=== PATIENT | male | born 1975 | race Caucasian/White ===

== ENCOUNTER 2022-10-15 14:19 | Inpatient (IN) | payer SELFPAY ==
--- OUTSIDE RECORDS SUMMARY | 2022-10-15 14:35 | XMS REPORT | Continuity of Care Document ---
:1975 Author Organization [facility] t Address [address] [place] [address] Care Team Providers Name Role Phone Pcp, Patient Does Not Have A Primary Care Physician [id number] Susan Osborne Attending Clinician SUSAN OAKLEY Attending Clinician Unavailable Doctor Unassigned, [place] Attending Clinician Unavailable Problems This patient has no known problems. Allergies, Adverse Reactions, Alerts Allergy Allergy Status Severity Reaction(s) Onset Inactive Treating Comm ents Source Name Type Date Date Clinician NO KNOWN Drug Active Univers ALLERGIE Class ity of S [facility] Social History Social Habit Start Date Stop Date Quantity Comments Source History of Passive smoker University of tobacco use [facility] Exposure to 2022-08-03 2022-08-13 Not sure [facility] SARS-CoV-2 00:00:00 08:43:00 [facility] (event) Branch Tobacco use and 2022-08-13 2022-08-13 Smokeless tobacco Un iversity of exposure 00:00:00 00:00:00 non-user [facility] Sex Assigned At [birth year] Universit y of 00:00:00 00:00:00 [facility] Smoking Status Start Date Stop Date Source Tobacco smoking consumption [facility] [place] Smokes tobacco daily 2022-08-13 00:00:00 [facility] Medications Ordered Filled Start Stop Current Ordering Indication Dosage Frequency Signature Comments Components Source Medication Medication Date Date Medication? Clinician (SIG) Name Name gabapentin Yes [id number] 100mg Take 1 Univers 100 mg 5-31 capsule by ity of capsule 00:00: mouth 3 [place] 00 (three) Medical times [place] daily as needed for Pain (scale 4-6). gabapentin Yes [id number] 100mg Take 1 Univers 100 mg 5-31 capsule by ity of capsule 00:00: mouth 3 [place] [address] (three) Medical times Branch daily as needed for Pain (scale 4-6). gabapentin 0 Yes [id number] 100mg Take 1 Univers 100 mg 5-31 capsule by ity of capsule 00:00: mouth 3 [place] 00 (three) Medical times Branch daily as needed for Pain (scale 4-6). Vital Signs Vital Name Observation Time Observation Value Comments Source Systolic blood 2022-08-13 14:00:00 137 mm[Hg] Univer sity [facility] Diastolic blood 2022-08-13 14:00:00 89 mm[facility]Hg[facility] 2022-08-13 14:00:00 100 /min [facility] Body temperature 2022-08-13 13:59:00 36.94 D[place] [facility] Respiratory rate 2022-08-13 13:59:00 16 /min [facility] Body height 2022-08-13 13:59:00 193 cm [facility] Body weight 2022-08-13 13:59:00 83.915 kg [facility] BMI 2022-08-13 13:59:00 22.52 kg/m2 [facility] Oxygen saturation in 2022-08-13 13:59:00 100 /min [facility] blood by [facility] Pulse oximetry Branch Procedures Procedure Date / Time Performed Performing Clinician [facility] e ASSIGNMENT OF BENEFITS 2022-08-13 13:45:13 Doctor Unassigned, No [facility] Branch Encounters Start End Encounter Admission Attending Care Care Encounter Source Date/Time Date/Time Type Type Clinicians Facility Department ID 2022-08-15 2022-08-15 Telephone Susan Oakley [facility] [id number] Univers 00:00:00 00:00:00 SPECIALTY [id number] ity [facility] [id number] Philippe ROWELL [id number] [facility] 387 Branch 2022-08-13 2022-08-13 Office Susan Oakley [facility] [id number] Univers 09:00:00 09:30:00 Visit SPECIALTY [id number] ity of [place] [id number] [facility] [id number] [facility] 314 Branch 2022-08-13 2022-08-13 Outpatient R SUSAN OAKLEY [facility] [id number] [facility] 09:00:00 09:00:00 ity of [facility] 2022-08-13 2022-08-13 Orders Doctor KATHY [id number] [facility] 00:00:00 00:00:00 Only Unassigned, JOO [id number] ity of [place] [facility] [id number] [facility] [id number] [facility] 009 Branch Results This patient has no known results.
[2022-10-15 15:19] LABS: Absolute Lymphocytes (CBC) 2.3 K/uL (0.7-4.9); Hematocrit 44.8 % (39.6-49.0); Lymphocytes % 42.2 % (15.3-44.8); MCV 103.1 fL (80-100); MPV 7.1 fL (7.6-11.3); RBC Red Blood Cell Count 4.34 M/uL (4.33-5.43)
--- NOTE | 2022-10-15 15:23 | RAD REPORT ---
EXAM DESCRIPTION: RAD - Tib Fib Right - 10/15/2022 3:17 pm CLINICAL HISTORY: laceration, swelling Pain and swelling. COMPARISON: No comparisons FINDINGS: Soft tissue laceration anterior to the patella. No radiopaque foreign body. No fracture or dislocation. No aggressive marrow pattern.
[2022-10-15 15:25] LABS: Protime INR 0.92
[2022-10-15 15:39] LABS: Albumin 3.9 g/dL (3.4-5.0); Bilirubin Total 0.4 mg/dL (0.2-1.0); Potassium 4.1 mEq/L (3.5-5.1); Protein, Total 7.3 g/dL (6.4-8.2)
--- NOTE | 2022-10-15 15:52 | RAD REPORT ---
EXAM DESCRIPTION: US - Extremity Venous Uni Ltd - 10/15/2022 3:32 pm CLINICAL HISTORY: SWELLING Leg swelling and edema. COMPARISON: No comparisons FINDINGS: Right lower extremity venous system was interrogated with Doppler technique. Normal flow, compressibility and augmentation was noted. There is no DVT present. IMPRESSION: No evidence of right lower extremity deep venous thrombosis.
[2022-10-15] MEDS ORDERED: NA CHLORIDE 0.9% 1,000 ML ONE ×2 (16:14→18:58)
[2022-10-15] MEDS ORDERED: CLINDAMYCIN 900MG/D5W 900 MG/50 ML IVPB IV ONE (16:14)
--- NOTE | 2022-10-15 17:39 | ER ---
Nurse's Notes [facility] Name: Scottie Tyler Age: 46 yrs Sex: Male : 1975 Arrival Date: 10/15/2022 Time: 14:19 Bed 2 Private MD: Diagnosis: Cellulitis of right lower limb Presentation: 10/15 14:46 Chief complaint: Patient states: fell about 10 days ago, has lacerations to right knee me1 and gustafson that are red and warm. Edema noted to right leg. Denies fever. Coronavirus screen: Vaccine status: Patient reports receiving the 2nd dose of the covid vaccine. At this time, the client does not indicate any symptoms associated with coronavirus-19. Ebola Screen: No symptoms or risks identified at this time. Initial Sepsis Screen: Does the patient meet any 2 criteria? No. Patient's initial sepsis screen is negative. Does the patient have a suspected source of infection? Yes: Other: lacerations to right knee and gustafson. Risk Assessment: Do you want to hurt yourself or someone else? Patient reports no desire to harm self or others. Onset of symptoms is unknown. 14:46 Method Of Arrival: Ambulatory [facility] 14:46 Acuity: LAVON 3 ok1 Triage Assessment: 14:50 General: Appears uncomfortable, slender, Behavior is calm, cooperative, appropriate for ok1 age. Pain: Denies pain. Neuro: Level of Consciousness is awake, alert, obeys commands, Oriented to person, place, time, situation. Cardiovascular: Capillary refill < 3 seconds Patient's skin is warm and dry. Respiratory: Respiratory effort is even, unlabored, Respiratory pattern is regular, symmetrical. Injury Description: Laceration sustained to right knee and right gustafson. is full thickness, red, warm and surrounding tissue is swollen. Historical: - Allergies: 14:49 No Known Allergies; me1 - Home Meds: 14:49 None [Active]; me1 - PMHx: 14:49 scoliosis; me1 - PSHx: 14:50 None; me1 - Immunization history:: Adult Immunizations up to date. - Social history:: Smoking status: Patient reports the use of cigarette tobacco products, smokes one pack cigarettes per day. Screenin:02 [facility] ED Fall Risk Assessment (Adult) History of falling in the last 3 months, bp including since admission No falls in past 3 months (0 pts). Abuse screen: Denies threats or abuse. Denies injuries from another. Nutritional screening: No deficits noted. Tuberculosis screening: No symptoms or risk factors identified. Assessment: 15:06 Reassessment: Patient appears in no apparent distress at this time. Patient and/or db family updated on plan of care and expected duration. Pain level reassessed. Patient is alert, oriented x 3, equal unlabored respirations, skin warm/dry/pink. General: Appears in no apparent distress. comfortable, Behavior is calm, cooperative. Pain: Complains of pain in right leg. 16:16 Reassessment: No changes from previously documented assessment. Patient is alert, bp oriented x 3, equal unlabored respirations, skin warm/dry/pink. 17:01 Reassessment: Patient appears in no apparent distress at this time. Patient is alert, bp oriented x 3, equal unlabored respirations, skin warm/dry/pink. 17:33 Reassessment: Patient appears in no apparent distress at this time. Patient and/or db family updated on plan of care and expected duration. Pain level reassessed. Patient is alert, oriented x 3, equal unlabored respirations, skin warm/dry/pink. 18:40 Reassessment: Patient appears in no apparent distress at this time. Patient and/or db family updated on plan of care and expected duration. Pain level reassessed. Patient is alert, oriented x 3, equal unlabored respirations, skin warm/dry/pink. Vital Signs: 14:46 BP 141 / 100; Pulse 103; Resp 17; Temp 98.3(O); Pulse Ox 96% on R/A; Weight 90.72 kg; me1 Height 6 ft. 6 in. ; 14:53 BP 141 / 100; Pulse 103; Resp 17; Temp 98.3; Pulse Ox 96% ; Weight 90.72 kg; Height 6 me1 ft. 6 in. ; 16:16 BP 129 / 93; Pulse 79; Resp 16; Pulse Ox 98% ; bp 17:01 BP 123 / 93; Pulse 88; Resp 16; Pulse Ox 99% ; bp 20:27 BP 137 / 98; Pulse 91; Resp 15; Pulse Ox 98% on R/A; kd3 14:53 Body Mass Index 23.11 (90.72 kg, 198.12 cm) ok1 ED Course: 14:20 Patient arrived in ED. rg4 14:24 Nadia Gillespie PA-C is PHCP. sb4 14:24 Manjit Norton MD is Attending Physician. sb4 14:36 Wilfred Crowder, RN is Primary Nurse. bp 14:49 Triage completed. me1 14:50 Arm band placed on. me1 15:07 Inserted saline lock: 20 gauge in right antecubital area, using aseptic technique. db Blood collected. 15:07 Initial lab(s) drawn, by me, sent to lab. db 15:07 First set of blood cultures drawn by me. db 15:18 Tib Fib Right XRAY In Process Unspecified. EDMS 15:33 Extremity Venous Uni Ltd US In Process Unspecified. EDMS 15:59 Second set of blood cultures drawn by me. db 17:02 Patient has correct armband on for positive identification. Bed in low position. Call bp light in reach. Side rails up X2. 17:35 Attending Physician role handed off by Manjit Norton MD rn 17:35 Farzad Sanchez MD is Attending Physician. rn 17:38 Mac Sanchez MD is Hospitalizing Provider. sb4 17:53 Repeat lab(s) drawn. by me, sent to lab. db 20:27 Provided Education on: . kd3 20:27 No provider procedures requiring assistance completed. Patient admitted, IV remains in kd3 place. 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 Exp: bp 04/02/2023. Lot #: [id number]. } Route: IM; Site: right deltoid; 18:45 Drug: NS 0.9% IV 1000 ml Route: IV; Rate: 1 bolus; Site: right forearm; bp Medication: 20:27 VIS not applicable for this client. kd3 Intake: 17:30 IV: 1000ml; Total: 1000ml. db 17:30 IV: 1000ml; Total: 2000ml. db Outcome: 17:39 Decision to Hospitalize by Provider. sb4 20:27 Admitted to Med/surg kd3 20:27 Condition: stable 20:27 Discharge instructions given to patient, Instructed on the need for admit. 20:42 Patient left the ED. kd3 Signatures: Dispatcher [employer] EDMS Farzad Sanchez MD MD rn Garcia, Rubi rg4 Wilfred Crowder RN RN Nury Huggins RN RN kd3 Gema Arevalo, RN RN db Nadia Gillespie, PA-C PA-C sb4 Zuleima Cotto RN RN me1 Corrections: (The following items were deleted from the chart) 14:53 14:50 Injury Description: Laceration sustained to right knee and right gustafson. me1 me1 14:56 14:42 Chief complaint: me1 me1
--- NOTE | 2022-10-15 17:39 | EDPHYS ---
Physician Documentation [facility] Name: Scottie Tyler Age: 46 yrs Sex: Male : 1975 Arrival Date: 10/15/2022 Time: 14:19 Bed 2 Private MD: ED Physician Farzad Sanchez HPI: 10/15 15:37 This 46 yrs old Male presents to ER via Ambulatory with complaints of Laceration to sb4 Knee/Leg. 15:37 Onset: The symptoms/episode began/occurred 10 day(s) ago. sb4 16:50 states he fell and scraped his right knee and gustafson on the concrete 10 days ago. he has sb4 been attempting to clean it at home and wrap it. he states his right leg has slowly become more swollen and now his wounds are draining. he denies any fevers, shortness of breath, n/v. Historical: - Allergies: 14:49 No Known Allergies; me1 - Home Meds: 14:49 None [Active]; me1 - PMHx: 14:49 scoliosis; me1 - PSHx: 14:50 None; me1 - Immunization history:: Adult Immunizations up to date. - Social history:: Smoking status: Patient reports the use of cigarette tobacco products, smokes one pack cigarettes per day. ROS: 16:50 Constitutional: Negative for fever, chills, and weight loss, Eyes: Negative for injury, sb4 pain, redness, and discharge, ENT: Negative for injury, pain, and discharge, Cardiovascular: Negative for chest pain, palpitations, and edema, Respiratory: Negative for shortness of breath, cough, wheezing, and pleuritic chest pain, Abdomen/GI: Negative for abdominal pain, nausea, vomiting, diarrhea, and constipation, Back: Negative for injury and pain, Neuro: Negative for headache, weakness, numbness, tingling, and seizure. 16:50 MS/extremity: Positive for laceration, swelling. 16:50 Skin: Positive for laceration(s), swelling, of the right knee and right gustafson. 16:50 All other systems are negative. Exam: 16:50 Constitutional: This is a well developed, well nourished patient who is awake, alert, sb4 and in no acute distress. Head/Face: Normocephalic, atraumatic. Eyes: Extra-ocular motions intact. Periorbital areas with no swelling, redness, or edema. ENT: Mucous membranes moist. Cardiovascular: Regular rate and rhythm with a normal S1 and S2. Respiratory: Lungs have equal breath sounds bilaterally, clear to auscultation and percussion. No rales, rhonchi or wheezes noted. No increased work of breathing, no retractions or nasal flaring. Abdomen/GI: Soft, non-tender, no distension. Neuro: Awake and alert, GCS 15, oriented to person, place, time, and situation. Cranial nerves II-XII grossly intact. Motor strength 5/5 in all extremities. Sensory grossly intact. Cerebellar exam normal. Normal gait. 16:50 Skin: injury, laceration(s), the wound is approximately 6 cm(s), that can be described as no foreign body, linear, without bleeding, yellow/green exudate. Vital Signs: 14:46 BP 141 / 100; Pulse 103; Resp 17; Temp 98.3(O); Pulse Ox 96% on R/A; Weight 90.72 kg; me1 Height 6 ft. 6 in. ; 14:53 BP 141 / 100; Pulse 103; Resp 17; Temp 98.3; Pulse Ox 96% ; Weight 90.72 kg; Height 6 me1 ft. 6 in. ; 16:16 BP 129 / 93; Pulse 79; Resp 16; Pulse Ox 98% ; bp 17:01 BP 123 / 93; Pulse 88; Resp 16; Pulse Ox 99% ; bp 20:27 BP 137 / 98; Pulse 91; Resp 15; Pulse Ox 98% on R/A; kd3 14:53 Body Mass Index 23.11 (90.72 kg, 198.12 cm) me1 MDM: 14:24 Patient medically screened. sb4 16:54 Differential diagnosis: Cellulitis, DVT, tendon injury, laceration, sepsis, compartment sb4 syndrome, arterial occlusion. 17:37 Data reviewed: vital signs. sb4 17:37 Data reviewed: vital signs, nurses notes, lab test result(s), radiologic studies, I sb4 have discussed the patient's presentation/case with the attending Emergency Department Physician; and as a result, I will admit patient. Consideration of Admission/Observation Patient was admitted/placed on observation. I considered the following discharge prescriptions or medication management in the emergency department Medications were administered in the Emergency Department. See MAR. Counseling: I had a detailed discussion with the patient and/or guardian regarding: the historical points, exam findings, and any diagnostic results supporting the discharge/admit diagnosis, the presence of at least one elevated blood pressure reading (>120/80) during this emergency department visit, lab results, radiology results, the need for further work-up and treatment in the hospital. 10/15 14:52 Order name: CBC with Diff; Complete Time: 15:35 sb4 10/15 14:52 Order name: CMP; Complete Time: 15:39 sb4 10/15 14:52 Order name: Lactate w/ 2H reflex if indic.; Complete Time: 15:39 sb4 10/15 14:52 Order name: Protime (+inr); Complete Time: 15:35 sb4 10/15 14:52 Order name: Ptt, Activated; Complete Time: 15:35 sb4 10/15 15:38 Order name: Blood Culture Adult (2) sb4 10/15 17:23 Order name: Lactate w/ 2H reflex if indic.; Complete Time: 18:27 sb4 10/15 17:46 Order name: Procalcitonin; Complete Time: 18:54 la1 10/15 14:52 Order name: Tib Fib Right XRAY; Complete Time: 15:35 sb4 10/15 14:52 Order name: Extremity Venous Uni Ltd US; Complete Time: 16:01 sb4 10/15 14:52 Order name: EKG; Complete Time: 14:53 sb4 10/15 14:52 Order name: Cardiac monitoring; Complete Time: 14:56 sb4 10/15 14:52 Order name: IV Saline Lock - Large Bore; Complete Time: 15:09 sb4 10/15 14:52 Order name: Labs collected and sent; Complete Time: 15:09 sb4 10/15 14:52 Order name: Vital Signs; Complete Time: 14:56 sb4 EC:45 Rate is 84 beats/min. Rhythm is regular, Normal Sinus Rhythm. QRS Hope is Normal. TN sb4 interval is normal at 142 msec. QRS interval is normal at 90 msec. QT interval is normal at 374 msec. No Q waves. T waves are Normal. No ST changes noted. Clinical impression: Normal ECG. Interpreted by me. Reviewed by me. Administered Medications: 16:00 Drug: NS 0.9% IV 1000 ml Route: IV; Rate: 1 bolus; Site: right antecubital; db 17:30 Follow up: Response: No adverse reaction; IV Status: Completed infusion; IV Intake: db 1000ml 16:02 Drug: Clindamycin IVPB 900 mg Route: IVPB; Infused Over: 30 mins; Site: right db antecubital; 17:30 Follow up: Response: No adverse reaction; IV Status: Completed infusion; IV Intake: db 1000ml 18:15 Drug: Tetanus Toxoid,Adsorbed IM 0.5 ml {Drill Foreman: [employer] ([employer]). Exp: bp 04/02/2023. Lot #: [id number]. } Route: IM; Site: right deltoid; 18:45 Drug: NS 0.9% IV 1000 ml Route: IV; Rate: 1 bolus; Site: right forearm; bp Disposition: 17:35 Co-signature as Attending Physician, Farzad Sanchez MD I agree with the assessment and rn plan of care. I reviewed the patient's care provided by Advanced Practice Provider \T\ agree w/ the diagnosis \T\ care plan. I personally saw the pt \T\ performed a substantive portion of the visit, incldng all aspects of the (History/Exam/Medical Decision Making). 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 HPI: Pt with 10 day old laceration and injury to RLE, now with increased swelling and drainage. I agree with assessment and care plan and confirm the diagnosis (es) above. Disposition Summary: 10/15/22 17:39 Hospitalization Ordered Hospitalization Status: Observation sb4 Provider: Mac Sanchez sb4 Location: Telemetry/MedSur (observation) sb4 Condition: Stable sb4 Problem: new sb4 Symptoms: are unchanged sb4 Bed/Room Type: Standard sb4 Room Assignment: 219(10/15/22 19:48) cg Diagnosis - Cellulitis of right lower limb sb4 Forms: - Medication Reconciliation Form sb4 - SBAR form sb4 Signatures: Dispatcher [employer] EDMS Farzad Sanchez MD MD rn Attema, Lee, THREAD CHECKER-C [id number] Delmis Streeter RN RN cg Peltier, Brian RN RN Gema Garcia RN RN db Brown, Sophia, PA-C PA-C sb4 Zuleima Cotto, RN RN me1 Corrections: (The following items were deleted from the chart) 16:53 16:50 Skin: injury, that can be described as no foreign body, linear, without bleeding, sb4 yellow/green exudate, sb4 17:45 17:39 Severe sepsis without septic shock sb4 sb4 19:48 17:39 sb4 cg
[2022-10-15] MEDS ORDERED: TDAP (DIPHTH,PERTUSS(ACELL),TET VAC) 0.5 ML VIAL IMVAC ONE (18:58)
--- NOTE | 2022-10-15 19:11 | P.HP ---
Certification for Inpatient Patient admitted to: Inpatient With expected LOS: >2 Midnights Patient will require the following post-hospital care: None Practitioner: I am a practitioner with admitting privileges, knowledge of patient current condition, hospital course, and medical plan of care. Services: Services provided to patient in accordance with Admission requirements found in Title 42 Section 412.3 of the Code of Federal Regulations Patient History Date of Service: 10/15/22 Reason for admission: Right lower extremity cellulitis History of Present Illness: 46-year-old otherwise healthy male presents the emergency department chief complaint of swelling, concern for infection of right lower extremity. Approximate 10 days ago he had a fall developing a laceration to the right knee, he did not seek care at that time. The past 2 days has noticed increased swelling and pain in the right lower extremity, his right lower extremity is markedly edematous, he has a laceration healing by secondary intention just below the right knee. He was evaluated in the ER had an x-ray of the right tib-fib, venous Doppler of the right lower extremity which were negative for acute findings his labs are significant for lactic acid of 2.2 initially up to 2.4. ED provider wishes to the patient for cellulitis of the right lower extremity. Allergies No Known Allergies Allergy (Unverified 09/08/15 16:24) Home Medications: Hydrocodone 7.5/APAP 325 [[place] 7.5/325 mg*] 1 tab PO TID PRN #30 tab 09/13/15 Mupirocin Oint [Bactroban 2% Ointment*] 1 appl TOP BID #60 tube 09/13/15 Sulfamethoxazole/Trimethoprim [Bactrim Ds Tablet] 1 each PO BID #20 tablet 09/13/15 levoFLOXacin [Levaquin*] 500 mg PO DAILY #10 tab 09/13/15 traMADol HCL [Ultram*] 50 mg PO Q6H PRN #30 tab 09/13/15 - Past Medical/Surgical History Diabetic: No -: None -: History of foreign body removed from his foot as a child. Psychosocial/ Personal History: He is single, has 2 children - Family History Mother -: Other (see notes) (Grandmother had Alzheimer's) - Social History Smoking Status: Current every day smoker Counseled patient to stop smoking for: less than 10 minutes Alcohol use: Yes CD- Drugs: No Caffeine use: Yes Place of Residence: Home Review of Systems 10-point ROS is otherwise unremarkable Musculoskeletal: Leg Pain, Other (Leg swelling) Physical Examination - Physical Exam General: Alert, In no apparent distress, Oriented x3 HEENT: Atraumatic, PERRLA, Mucous membr. moist/pink, EOMI, Sclerae nonicteric Neck: Supple, 2+ carotid pulse no bruit, No LAD, Without JVD or thyroid abnormality Respiratory: Clear to auscultation bilaterally, Normal air movement Cardiovascular: Regular rate/rhythm, Normal S1 S2 Gastrointestinal: Normal bowel sounds, No tenderness Musculoskeletal: Other (Right leg significantly edematous below the knee with moderate laceration present just below the knee healing by secondary intention, erythema also noted to right lower extremity) Integumentary: No rashes Neurological: Normal speech, Normal strength at 5/5 x4 extr, Normal tone, Normal affect - Studies Laboratory Data (last 24 hrs) 10/15/22 10/15/22 10/15/22 15:07 15:07 15:07 WBC 5.50 Hgb 14.8 Hct 44.8 Plt Count 270 PT 10.1 INR 0.92 APTT 30.9 Sodium 138 Potassium 4.1 BUN 5 L Creatinine 0.79 Glucose 111 H Total Bilirubin 0.4 AST 35 ALT 26 Alkaline Phosphatase 89 Assessment and Plan - Plan Assessment: Right lower extremity cellulitis Tobacco abuse Plan: Right lower extremity cellulitis Obtain wound culture, blood cultures obtained, continue antibiotics with vancomycin/cefepime. Leg markedly swollen with healing laceration present below the right knee. Wound healing consulted. Tobacco abuse -NicoDerm patch, provided as needed. Patient also admits to drinking approximately. They will monitor for signs of alcohol withdrawal provide benzodiazepines as needed. DVT PPX: Lovenox Code status: Full Discharge Plan: Home Plan to discharge in: 48 Hours - Advance Directives Does patient have a Living Will: No Does patient have a Durable POA for Healthcare: No - Code Status/Comfort Care Code Status Assessed: Yes (Full code) Critical Care: No Time Spent Managing Pts Care (In Minutes): 55
[2022-10-15] MEDS ORDERED: ACETAMINOPHEN 500 MG TAB PO PRN (20:49)
[2022-10-15] MEDS ORDERED: NICOTINE 14 MG/PAT TD PRN (20:49)
[2022-10-15 21:00] VITALS: BMI 22.6
[2022-10-15 21:05] VITALS: O2SAT 98
[2022-10-15] MEDS: HYDROCODONE/APAP 5/325 MG TAB PO PRN (21:12)
[2022-10-16 03:48] LABS: Absolute Lymphocytes (CBC) 2.2 K/uL (0.7-4.9); Hematocrit 36.5 % (39.6-49.0); MCV 102.9 fL (80-100); MPV 7.5 fL (7.6-11.3); RBC Red Blood Cell Count 3.55 M/uL (4.33-5.43)
[2022-10-16 03:49] LABS: Potassium 3.8 mEq/L (3.5-5.1)
--- NOTE | 2022-10-16 07:09 | P.PN ---
Date of Service: 10/16/22 Subjective: Right leg with minimal pain, +erythematous, +edematous; reports clear drainage has full range of motion of right leg no new / worsening problems afebrile ROS: 10 point ROS as noted above, otherwise negative Physical Exam: GEN: Alert, oriented, NAD HEENT: Normal conjunctiva, sclera anicteric CV: Regular rate and rhythm, RLE edema up to knee Pulm: Nonlabored respirations on room air ABD: Soft, nontender, nondistended MSK: No joint tenderness Integumentary: Right leg significantly edematous below the knee with moderate laceration, +erythematous Neuro: Normal speech, normal affect vitals reviewed Problem List: Right lower extremity cellulitis hx of MRSA (2016) Tobacco abuse Alcohol abuse Right lower extremity cellulitis hx of MRSA (2016) xray tibia (10/15): Soft tissue laceration. no fracture or dislocation venous u/s (10/15): no DVT wound culture: pending blood cultures: pending General surgery consulted - Dr. Thomason continue empiric vancomycin and ancef (10/16-) Wound care consult PRN pain medication IVF DCd Tobacco abuse Alcohol abuse reports "couple beers a day, +half a pack of smokes a day" Cessation advised. NicoDerm patch placed monitor for signs of alcohol withdrawal VTE: Lovenox Code: Full Dispo: Home ~1-2 days
[2022-10-16] MEDS ORDERED: VANCOMYCIN 1.5 GM in NA CHLORIDE 0.9% 500 ML IVPB SCH ×2 (09:00→10:00)
[2022-10-16] MEDS ORDERED: VANCOMYCIN 1 GM in NA CHLORIDE 0.9% 250 ML IVPB SCH (09:00)
[2022-10-16] MEDS ORDERED: ENOXAPARIN 40 MG/0.4 ML SQ SCH (09:00)
[2022-10-16] MEDS ORDERED: CEFEPIME 1 GM in NA CHLORIDE 0.9% 100 ML IV SCH (09:00)
[2022-10-16] MEDS ORDERED: POTASSIUM 25 MEQ EFFERV TAB PO ONE (09:00)
[2022-10-16] MEDS ORDERED: CEFAZOLIN 1 GM in NA CHLORIDE 0.9% 50 ML IVPB SCH ×2 (10:00→17:00)
--- NOTE | 2022-10-16 13:43 | P.DS ---
Admission Date: 10/15/22 Discharge Date: 10/16/22 Disposition: ROUTINE DISCHARGE Discharge Condition: GOOD Reason for Admission: Right lower extremity cellulitis Consultations: General Surgery - Dr. Thomason Brief History of Present Illness: 46yo M, PMH: None Patient presents the emergency department chief complaint of swelling, concern for infection of right lower extremity. Approximate 10 days ago he had a fall developing a laceration to the right knee, he did not seek care at that time. The past 2 days has noticed increased swelling and pain in the right lower extremity, his right lower extremity is markedly edematous, he has a laceration healing by secondary intention just below the right knee. He was evaluated in the ER had an x-ray of the right tib-fib, venous Doppler of the right lower extremity which were negative for acute findings his labs are significant for lactic acid of 2.2 initially up to 2.4. Hospital Course: Problem List: Right lower extremity wound with cellulitis hx of MRSA (2016) Tobacco abuse Alcohol abuse Physical Exam: GEN: Alert, oriented, NAD HEENT: Normal conjunctiva, sclera anicteric CV: Regular rate and rhythm, RLE edema up to knee Pulm: Nonlabored respirations on room air Integumentary: RLE: laceration just inferior to patella, no purulent drainage, RLE mild erythema Neuro: Normal speech, normal affect Vital Signs/Physical Exam: Temp Pulse Resp BP Pulse Ox 98.6 F 74 15 143/89 H 97 10/16/22 08:00 10/16/22 08:00 10/16/22 08:00 10/16/22 08:00 10/16/22 08:00 Laboratory Data at Discharge: WBC 5.40 thou/uL (4.3-10.9) 10/16/22 02:00 Hgb 12.2 g/dL (13.6-17.9) L D 10/16/22 02:00 Hct 36.5 % (39.6-49.0) L 10/16/22 02:00 Plt Count 225 thou/uL (152-406) 10/16/22 02:00 PT 10.1 SECONDS (9.5-12.5) 10/15/22 15:07 INR 0.92 10/15/22 15:07 APTT 30.9 SECONDS (24.3-36.9) 10/15/22 15:07 Sodium 138 mEq/L (136-145) 10/16/22 02:00 Potassium 3.8 mEq/L (3.5-5.1) 10/16/22 02:00 BUN 5 mg/dL (7-18) L 10/16/22 02:00 Creatinine 0.67 mg/dL (0.70-1.30) L 10/16/22 02:00 Glucose 104 mg/dL (74-106) 10/16/22 02:00 Total Bilirubin 0.4 mg/dL (0.2-1.0) 10/15/22 15:07 AST 35 U/L (15-37) 10/15/22 15:07 ALT 26 U/L (16-61) 10/15/22 15:07 Alkaline Phosphatase 89 U/L (45-117) 10/15/22 15:07 Home Medications: Smz./Tmp. [Bactrim Ds 800 MG/160 MG] 1 tab PO BID 14 Days #28 tab 10/16/22 New Medications: Smz./Tmp. [Bactrim Ds 800 MG/160 MG] 1 tab PO BID 14 Days #28 tab Physician Discharge Instructions: PROBLEM: Cellulitis GOAL: Clear understanding of disease process INSTRUCTIONS: Follow up with PCP in 3-5 days. Call to make an appointment. Follow up with Dr Thomason within 1-2 weeks. Call to make an appointment. Return to ER if symptoms worsen. Diet: Regular Activity: As tolerated Patient presented with worsening swelling, erythema of right lower extremity with a moderate laceration wound. No fractures seen on imaging. Negative for DVT. Patient was given empiric vancomycin and cefepime due to patient having a history of MRSA. Dr. Thomason was consulted. Discussed with patient the risks, benefits, and alternatives of medical vs. surgical management of his right leg. Patient declined surgical intervention at this time. Patient acknowledged the risks and would like to continue wound care/antibiotics first before entertaining the idea of surgery. Recommenced wound care with santyl, Vashe daily, packing with kerlix, and wrap from toes to thigh with gurmeet bandage. Patient was feeling better, remained afebrile without leukocytosis, and was deemed stable for discharge. new medications: Bactrim x 14 days Follow up: PCP 3-[address] Thomason within 1-2 weeks Follow up with a General Surgeon of your choice: PAKO CUETO, [address] [place] [address] Followup: NONE,NONE [Primary Care Provider] - Time spent managing pt's care (in minutes): 45
[2022-10-16] MEDS ORDERED: COLLAGENASE 30 GM OINTMENT TOP SCH (15:00)
[2022-10-16] MEDS: HYDROCODONE/APAP 5/325 MG TAB PO PRN (15:13)
[2022-10-16 16:58] VITALS: BP 157/90; TEMP 98
--- NOTE | 2022-10-20 13:21 | EKG ---
Test Date: 2022-10-15 Test Time: 15:41:46 [employer]: LUKE MEASUREMENT RESULTS: Intervals: Rate: 84 MN: 142 QRSD: 90 QT: 374 QTc: 441 [place]: P: 62 MN: 142 QRS: 62 T: 68 INTERPRETIVE STATEMENTS: Normal sinus rhythm Normal ECG Compared to ECG 10/30/2016 20:20:29 Sinus tachycardia no longer present Electronically Signed On 10-20-22 13:13:10 CDT by Patrice Ruiz
== END 2022-10-16 17:09 | disposition home or self-care (01) | DRG 605 ==
LOC: ER 14:19 → ERHOLD 18:06 → 2ND 19:54
PROVIDERS: ADMIT Hospitalist; ATTEND Hospitalist
DX: S81.811A Laceration without foreign body, right lower leg, initial encounter (principal); L03.115 Cellulitis of right lower limb; W19.XXXA Unspecified fall, initial encounter; F10.10 Alcohol abuse, uncomplicated; F17.210 Nicotine dependence, cigarettes, uncomplicated; Z71.6 Tobacco abuse counseling; Z23 Encounter for immunization; Z79.899 Other long term (current) drug therapy; Z86.14 Personal history of Methicillin resistant Staphylococcus aureus infection
CPT/HCPCS: 36415; 80048; 80053; 83605; 84145; 85025; 85610; 85730; 87040; 87070; 87205; 90471; 93005; 93971; 96365; 99285; J0692; J1650; J3590; J7030; J7040